=== PATIENT | female | born 1990 | race Caucasian/White ===

== ENCOUNTER 2016-12-29 16:10 | Emergency (ER) | payer SELFPAY ==
[~2016-12-29] VITALS: Ht 170.2 cm; Wt 86.7 kg
[~2016-12-29 16:10] MED LIST: ACET-1256 PO; IBUP-1050 PO
[2016-12-29 16:18] VITALS: Ht 170.2 cm; Wt 86.7 kg
[2016-12-29] MEDS ORDERED: CEPH500C PO (16:47)
[2016-12-29] MEDS ORDERED: OXYC1TAB3 PO (16:47)
[2016-12-29] MEDS ORDERED: SULF800T23 PO (16:47)
[2016-12-29] MEDS ORDERED: OXYCODONE HCL IR 5 MG TAB (IMMEDIATE RELEASE) PO STA (16:48)
[2016-12-29] MEDS ORDERED: SULFAMETHOXAZOLE/TRIMETHOPRIM DS 800/160MG TAB PO STA (16:48)
[2016-12-29] MEDS ORDERED: CEPHALEXIN MONOHYDRATE 250 MG CAP PO ONE (17:00)
--- NOTE | 2016-12-29 17:07 | EMERGENCY ROOM VISIT NOTE ---
History First contact with patient: 16:36 Chief Complaint: WOUND INFECTION Stated Complaint: LF ARM WOUND INFECTION Nursing Triage Summary: Patient states "I get cellulitis. I've had it 3 times. This is my 3rd time. My left forearm is red and sore." History of Present Illness The patient is a 26 year old female who presents to the Emergency Room with complaints of an infection on her left forearm. The patient reports that she started to notice swelling earlier in the week. She did try to pop it, but the size, redness, swelling and pain are progressively worsening. She does report having chills. The patient reports that she has had history of recurrent cellulitis. She denies any prior history of anabolic resistant infections. She rates her discomfort a 7 out of 10. 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 (11) Pain, dental Family History No pertinent family history Social History Smoking Status: Current Every Day Smoker Alcohol Use: none Marital Status: single Housing Status: lives with family Occupation Status: employed Current/Historical Medications Scheduled Cephalexin Monohydrate (Keflex), 500 MG PO QID Sulfa/Trimethoprim (Bactrim Ds 800MG/160MG), 1 TAB PO BID Scheduled PRN Oxycodone Ir (Roxicodone Ir), 1-2 TAB PO Q4H PRN for Pain Allergies Coded Allergies: Tramadol (Verified Allergy, Severe, SEIZURES, 09/19/15) Physical Exam Vital Signs Date Time Temp Pulse Resp B/P Pulse Ox O2 Delivery O2 Flow Rate FiO2 12/29/16 16:18 37.4 115 18 119/66 100 Room Air Physical Exam CONSTITUTIONAL: Healthy and well nourished. Alert and oriented X 3 with positive affect. HEENT: Normocephalic, atraumatic. Pupils equal, round and reactive. NECK: Full active range of motion without discomfort. RESPIRATORY: Clear to auscultation bilaterally with no wheezing, crackles, rhonchi or stridor. CARDIOVASCULAR: Regular rate and rhythm without any murmurs, rubs or gallops. MUSCULOSKELETAL: Examination of the left dorsal mid forearm shows an area of erythema and induration without any drainage or central fluctuance. Patient has no worsening pain with flexion or extension of the wrist or elbow. Capillary refill is less than 2 seconds. INTEGUMENTARY: No additional body rashes noted. NEUROLOGIC: Left hand and fingers are sensory intact. Medical Decision & Procedures ED Course Patient history and physical exam were performed. Nurse's notes were reviewed. Vital signs were reviewed and were normal. The patient will be treated with Keflex and Bactrim DS antibiotics. She was instructed to follow-up with her family doctor for recheck in 2-3 days. Return to the emergency department over the weekend for any progressively worsening infection. She was encouraged to alternate ibuprofen and Tylenol baseline pain relief. She was administered OxyIR 5 mg in the emergency department, and also received a prescription for OxyIR 5 mg, dispensed #15 with no refills. The patient voiced understanding of all discharge instructions, was happy with plan care, and rated her pain a 6 out of 10 at the time of discharge. Medical Decision Impression Primary Impression: Cellulitis of left forearm Departure Information Dispostion Home / Self-Care Prescriptions Oxycodone Ir (Roxicodone Ir) 5 Mg Tab 1-2 TAB PO Q4H Y for Pain, #15 TAB For Initial Treatment Prov: Benjamin Garza PA 12/29/16 Sulfa/Trimethoprim (Bactrim Ds 800MG/160MG) Tab 1 TAB PO BID for 7 Days, #14 TAB Prov: Benjamin Garza PA 12/29/16 Cephalexin Monohydrate (Keflex) 500 Mg Cap 500 MG PO QID for 7 Days, #28 CAP Prov: Benjamin Garza PA 12/29/16 Forms HOME CARE DOCUMENTATION FORM, IMPORTANT VISIT INFORMATION Patient Instructions My [facility] Additional Instructions Complete all Keflex and Bactrim DS antibiotics as prescribed. Apply warm moist compress to help promote drainage. Keep forearm covered with an ointment/salve and dressing to keep the area moist. Ibuprofen 800 mg and/or Tylenol 1000 mg every 8 hours. You may also alternate these medications for more effective pain relief: Ibuprofen --4 HRS--> Tylenol --4 HRS--> ibuprofen --4 HRS--> Tylenol .... OxyIR if needed for worse pain. Do not drink or drive while taking OxyIR. Follow-up with your family doctor on Sunday for wound recheck. Return to the emergency department over the weekend for progressively worsening infection.
[2016-12-29 17:45] VITALS: BP 119/66; PULSE 88; TEMP 36.9; O2SAT 100
== END 2016-12-29 17:45 | disposition home or self-care (01) ==
LOC: C.EDB 16:11 → C.EDD 17:45
DX: L03.114 Cellulitis of left upper limb (principal); F17.200 Nicotine dependence, unspecified, uncomplicated

== ENCOUNTER → 2017-11-06 | Outpatient (CLI) | payer OTHER ==
[2017-11-06 12:26] LABS: HEMATOCRIT 43.5 % (37-47); MEAN CELL VOLUME 93.1 fL (80-100); MEAN CORPUSCULAR HEMOGLOBIN 31.3 pg (25-34); MEAN CORPUSCULAR HGB CONC 33.6 g/dl (32-36); MEAN PLATELET VOLUME 9.8 fL (7.4-10.4); PLATELET COUNT 376 K/uL (130-400); RED BLOOD COUNT 4.67 M/uL (4.2-5.4); WHITE BLOOD COUNT 11.48 K/uL (4.8-10.8)
[2017-11-06 12:39] LABS: ALT/SGPT 30 U/L (12-78); AST/SGOT 13 U/L (15-37); BLOOD UREA NITROGEN 15 mg/dl (7-18); BUN/CREATININE RATIO 19.1 (10-20); CALCIUM 9.1 mg/dl (8.5-10.1); CARBON DIOXIDE 27 mmol/L (21-32); CHLORIDE 107 mmol/L (98-107); CREATININE 0.78 mg/dl (0.60-1.20); GLUCOSE 100 mg/dl (70-99); POTASSIUM 3.8 mmol/L (3.5-5.1); SODIUM 139 mmol/L (136-145)
[2017-11-06 12:50] LABS: ALB/GLOB RATIO 0.8 (0.9-2); ALKALINE PHOSPHATASE 89 U/L (45-117); CHOLESTEROL 160 mg/dl (0-200); CHOLESTEROL/HDL RATIO 2.6; HDL CHOLESTEROL 62 mg/dl; LDL CHOLESTEROL CALCULATED 63 mg/dl; THYROID STIMULATING HORMONE 0.381 uIu/ml (0.300-4.500); TRIGLYCERIDES 174 mg/dl (0-150); VERY LOW DENSITY LIPOPROT CALC 35 mg/dl
== END | disposition home or self-care (01) ==
LOC: C.LABPBG 08:26
PROVIDERS: ATTEND Family Medicine
DX: Z13.220 Encounter for screening for lipoid disorders (principal); Z87.898 Personal history of other specified conditions; F31.9 Bipolar disorder, unspecified